=== PATIENT | male | born 1970 | race Caucasian/White ===

== ENCOUNTER 2020-05-22 13:47 | Emergency (ER) | payer BC, SELFPAY ==
[2020-05-22] VITALS (27 sets, daily range): BP systolic 122–160; BP diastolic 55–86; PULSE 73–98; RESP 9–32; TEMP 37.3; O2SAT 95–100
--- NOTE | 2020-05-22 13:45 | RT.EKG_ITS ---
APPROVED REPORT Exam: Resting ECG Patient Location: E HR:84 bpm ECG Measurements Heart Rate 84 AXIS MA 176 P 57 QRSd 102 QRS -30 QT 371 T 32 QTc 440 Conclusion Sinus rhythm...normal P axis, V-rate 60- 99 Left axis deviation...QRS axis (-30,-90) No acute ST elevation or depression.
--- NOTE | 2020-05-22 14:00 | ED.GENADUL_ITS ---
Discharge Plan Disposition Patient Disposition: HOME Condition: Improving Discharge Details Chief Complaint: Seizure Clinical Impression: Seizure disorder, Burn of first degree of left forearm, initial encounter, Burn of second degree of left forearm, initial encounter Primary Care Provider: Karen Castillo ED Provider: Sachi Modi Home Meds and New Rx's Prescriptions: Continued felbamate 600 mg Tablet 1,200 mg PO TID RF: 0 nortriptyline 75 mg Capsule 300 mg PO DAILY RF: 0 doxycycline hyclate 100 mg Tablet 100 mg PO BID RF: 0 Discharge Instructions Instructions: Superficial Burn (ED), Second Degree Burn (ED), Recurrent Seizures in Adults (ED) Additional Instructions: Drink plenty of fluids and get plenty of rest. Take Tylenol as needed and directed for headache. Continue your regular seizure medications as directed. Wash your left forearm burn with soap and water and apply topical antibiotic ointment and nonadherent dressing once daily for the next 5-7 days. Follow-up with your scheduled appointment with your neurologist at [facility] in June. Return immediately to the emergency department if you develop any worsening or new concerning symptoms. Discharge Data Discharge Date/Time-TO BE ENTERED AT DEPARTURE: 05/22/20 16:15 Discharge Physician: Sachi Modi Medical Decision Making 50-year-old male with a history of seizure disorder presents after an episode of altered mental status and altered speech followed by a 4-minute tonic-clonic seizure with LOC now presents for evaluation. Patient events to mild headache. He also has a first degree burn to his left fo rearm when he hit the tar from the roof. There is also a small second-degree burn within this area. There is no bony deformity. He has no focal deficits. Suspect most likely seizure related to sleep deprivation. Will place an IV, bolus IV fluids, screening labs, CT head and cervical spine and chest x-ray to rule out any acute process. We will also give a dose of Tylenol IV and reassess. 1500 --patient refusing CT imaging and chest x-ray. He states his symptoms feel consistent with his usual seizures. He states he had an MRI brain at [facility] 3 months ago which was negative for acute findings. He is declining all imaging. Risks of and disability due to missing a possible serious pathology such as skull fracture, brain bleed, mass or infection discussed and he understands. He demonstrates capacity to make decisions. His labs are reviewed and unremarkable. He has been texting on his phone and appears in no acute distress. 1515 --discussed with [facility] neurology -no other acute recommendations. Recommends to keep his seizure medications at the same dosage at this time. Patient has follow-up appoint with Dr. Tariq in June. His left forearm burn was covered with bacitracin and nonadherent dressing. Patient is requesting to go home. He feels much better and denies any acute complaints. He was given nonadherent dressings to go. A tetanus is given prior to discharge. Usual and customary return precautions given prior to discharge. Medical Records Medical records reviewed: Yes I reviewed the patient's medical records. Lab Data Lab results reviewed: Yes I reviewed the patient's lab results. Labs: Laboratory Tests Range/Units 05/22/20 05/22/20 13:49 13:49 WBC (4.4-10.8) 10^3/uL 7.29 RBC (4.36-5.78) 10^6/uL 4.99 Hgb (13.5-17.5) g/dL 14.5 Hct (40.0-50.0) % 44.1 MCV (80-95) fL 88.4 MCH (27.0-33.0) pg 29.1 MCHC (32.0-36.0) % 32.9 RDW (11.8-14.1) % 13.2 Plt Count (130-400) 10^3/uL 288 MPV (8.0-11.0) fL 8.6 Immature Gran % 0.8 Neutrophils % 81.0 Lymphocytes % 12.9 Monocytes % 4.5 Eosinophils % 0.4 Basophils % 0.4 Absolute Neutrophils (1.2-6.7) 10^3/uL 5.90 Absolute Lymphocytes (1.2-3.4) 10^3/uL 0.94 L Absolute Monocytes (0.1-0.8) 10^3/uL 0.33 Absolute Eosinophils (0.0-0.7) 10^3/uL 0.03 Absolute Basophils (0.0-0.2) 10^3/uL 0.03 Sodium (136-145) mmol/L 140 Potassium (3.5-5.1) mmol/L 4.2 Chloride (98-107) mmol/L 105 Carbon Dioxide (21.0-32.0) mmol/L 24.0 Anion Gap (3-11) mmol/L 11.0 BUN (7-18) mg/dL 11 Creatinine (0.70-1.30) mg/dL 0.81 Estimated GFR/1.73 m2 (mL/min/1.73m2) >= 60.00 Glucose (74-106) mg/dL 105 Calcium (8.5-10.1) mg/dL 8.6 Magnesium (1.8-2.4) mg/dL 1.7 L Total Bilirubin (0.2-1.0) mg/dL 0.3 AST (15-37) U/L 32 ALT (16-63) U/L 31 Alkaline Phosphatase (46-116) U/L 61 Troponin I (<0.06) ng/mL < 0.05 Total Protein (6.4-8.2) g/dL 7.6 Albumin (3.4-5.0) g/dL 4.1 ECG Data Attestation: I personally reviewed and interpreted this ECG (s) as follows: Interpretation: rate of 84, sinus, no acute ST elevation or depression. MS 176. QRS 102. QTc 440. HPI General Mode of arrival: ambulatory . Date/Time Provider Initiated Documentation: 05/22/20 13:51 . Limitations to Documentation: no limitations . Information obtained by: patient . HPI Narrative: Patient is a 50-year-old male with a history of seizure disorder presents for 2 episodes of altered mental status and seizure that occurred this morning prior to arrival. 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 EMS was called at that time and upon their arrival, patient admitted to feeling better and thought he was dehydrated and declined transport to the ER. Case was discussed with assembler tractor at that time and as patient was hemodynamically stable and oriented x3, it was found that he had capacity to make decisions. A short while later, patient felt dizzy and was noted by his coworkers to have a tonic-clonic seizure that lasted approximately 4 minutes. During that time he fell to the ground on the roof and hit his left forearm and elbow on the hot tar. He denies any bony injury but does admit to a burn to his left forearm. He is unsure of his tetanus status. He denies hitting his head but does admit to a diffuse headache which is 4/10. He denies any neck pain but states it feels somewhat stiff. He denies chest pain, back pain, shortness of breath, abdominal pain, recent illness, recent travel, fever, vomiting or diarrhea. Patient states he has been taking his seizure medication as directed. Patient states he is followed by [facility] neurology and last had an MRI a few months ago which was negative. He states he has seizures occurring usually in his sleep consistent with absence seizures which are noted by his while they are sleeping in which he gets up and walks around and says odd things. He states occasionally he has had tonic-clonic seizures that occur during the day but this is more rare. He states he first was diagnosed with seizure 6 years ago. He states he did not get much sleep last night and feels that this is the cause of his seizures as this usually happens when he is sleep deprived. Related Data Home Medications Medication Instructions Recorded Confirmed doxycycline hyclate 100 mg PO BID 05/22/20 05/22/20 felbamate 1,200 mg PO TID 05/22/20 05/22/20 nortriptyline 300 mg PO DAILY 05/22/20 05/22/20 Allergies Allergy/AdvReac Type Severity Reaction Status Date / Time amoxicillin AdvReac Skin Rash Unverified 05/22/20 13:55 lamotrigine [From Lamictal] AdvReac Skin Rash Unverified 05/22/20 13:55 General Stated Complaint: Seizure SAMANTHA: 3 Review of Systems All systems reviewed & are unremarkable except as noted in HPI and below Constitutional Constitutional: Reports as per HPI, Denies chills, Denies fever(s) and Reports headache(s) Eyes Eyes: Denies blurry vision ENT Ears, Nose, Mouth, and Throat: Denies dizziness, Reports headache(s), Denies sore throat and Denies throat swelling Cardiovascular Cardiovascular: Denies chest pain and Denies dyspnea Respiratory Respiratory: Denies cough and Denies dyspnea Gastrointestinal Gastrointestinal: Denies abdominal pain, Denies diarrhea and Denies vomiting Genitourinary Genitourinary: Denies hematuria and Denies dysuria Musculoskeletal Musculoskeletal: Denies back pain and Denies numbness Integumentary/Breasts Skin/Breast: Denies lesions and Denies rash Neurologic Neurologic: Denies dizziness, Reports headache(s), Denies localized weakness, Denies numbness and Reports convulsions Allergic/Immunologic Allergic/Immunologic: Denies throat swelling [facility] Medical History (Updated 05/22/20 @ 15:56 by Sachi Modi DO) Anxiety (Chronic) Seizure disorder (Chronic) Surgical History (Updated 05/22/20 @ 15:53 by Sachi Modi DO) History of knee surgery (Acute) Social History Smoking/Tobacco Use Status: Never Alcohol Intake: never Drug use: Never Substance use type: does not use Do you feel safe at home: Yes Do you feel safe in your relationship?: Yes Exam Const General: cooperative and healthy appearing Orientation: alert and awake HENMT Head: normal to inspection Ears: hearing grossly normal bilaterally, external ears normal and TM's normal bilaterally General nose exam: external nose normal Face and sinus: normal facial exam Mouth: oral mucosae normal Teeth and gingiva: dentition normal Throat: posterior oropharynx normal Eyes General: appearance normal, both eyes and all related structures Eyelids: eyelids normal Pupils: PERRL EOM: EOM intact bilaterally Neck Neck: normal visual inspection Lymphatic: no lymphadenopathy noted Chest Chest: normal inspection of the chest Resp Effort & Inspection: normal respiratory effort and able to speak in complete sentences Auscultation: clear to auscultation bilaterally Cardio Rate: regular rate Rhythm: regular rhythm GI Inspection: normal to inspection Palpation: soft, not firm, no guarding, no hepatosplenomegaly, no masses and nontender Auscultation: normal bowel sounds Back/Spine/Pelvis Back: no CVA tenderness Skin General skin exam: no rashes or lesions noted Neuro General: patient alert and patient awake Cognition: normal cognition Speech: speech normal Gait: normal gait Motor: muscle tone normal throughout Sensory Exam: no sensory deficits noted Extrem Elbow/forearm/wrist images: 1. 12 x 6 cm area of erythema and edema consistent with first-degree burn. There is a 1 x 1 cm ruptured blister noted at superior proximal end of first- degree burn consistent with second-degree burn. Psych Appearance: grossly normal Mental Status: mental status grossly normal Speech and Movement: speech and movement normal Affect: normal affect Thought Process: normal Course Vital Signs Vital signs: Vital Signs Temperature 99.1 F 05/22/20 13:36 Pulse 88 05/22/20 13:36 Respiratory Rate 16 05/22/20 13:36 Blood Pressure 160/75 H 05/22/20 13:36 Pulse Oximetry 96 05/22/20 13:36 Temperature 99.1 F 05/22/20 13:36 Temperature Source Skin 05/22/20 13:36 Pulse 88 05/22/20 13:36 Respiratory Rate 16 05/22/20 13:36 Respiratory Effort Non-Labored 05/22/20 13:57 Blood Pressure 160/75 H 05/22/20 13:36 Pulse Oximetry 96 05/22/20 13:36 Oxygen Delivery Method Room Air 05/22/20 13:36 Oxygen Flow Rate 0 05/22/20 13:36 Pain Level 2 05/22/20 13:36 Comment 05/22/20 13:36
[2020-05-22 14:50] LABS: Abs Immature Grans 0.06 10^3/uL (0.0-0.06); Absolute Basophil Count 0.03 10^3/uL (0.0-0.2); Absolute Eosinophil Count 0.03 10^3/uL (0.0-0.7); Absolute Lymphocyte Count 0.94 10^3/uL (1.2-3.4); Absolute Monocyte Count 0.33 10^3/uL (0.1-0.8); Basophils % 0.4; Eosinophils % 0.4; HCT 44.1 % (40.0-50.0); HGB 14.5 g/dL (13.5-17.5); Immature Grans % 0.8; Lymphocytes % 12.9; MCH 29.1 pg (27.0-33.0); MCHC 32.9 % (32.0-36.0); MCV 88.4 fL (80-95); MPV 8.6 fL (8.0-11.0); Monocytes % 4.5; Nucleated RBC 0 %; Platelet Count 288 10^3/uL (130-400); RBC 4.99 10^6/uL (4.36-5.78); RDW 13.2 % (11.8-14.1); WBC 7.29 10^3/uL (4.4-10.8)
[2020-05-22] MEDS: ACETAMINOPHEN 1,000 MG/100 ML BTL 400 MG IVPB (15:02)
[2020-05-22] MEDS: Normal Saline 1,000 ML 1000 ML IV (15:02)
[2020-05-22] MEDS: Normal Saline Flush 10 ML SYR IVP (15:03)
[2020-05-22 15:08] LABS: ALT 31 U/L (16-63); AST 32 U/L (15-37); Albumin 4.1 g/dL (3.4-5.0); Alkaline Phosphatase 61 U/L (46-116); BUN 11 mg/dL (7-18); Bilirubin, Total 0.3 mg/dL (0.2-1.0); CREATININE 0.81 mg/dL (0.70-1.30); Calcium 8.6 mg/dL (8.5-10.1); Chloride 105 mmol/L (98-107); Glucose 105 mg/dL (74-106); Magnesium 1.7 mg/dL (1.8-2.4); Potassium 4.2 mmol/L (3.5-5.1); Sodium 140 mmol/L (136-145); Total Protein 7.6 g/dL (6.4-8.2); Troponin I < 0.05 ng/mL (<0.06)
== END 2020-05-22 16:15 | disposition home or self-care (01) ==
PROVIDERS: Emergency Provider Physician Assistant; PCP Internal Medicine
DX: G40.909 Epilepsy, unspecified, not intractable, without status epilepticus (principal); T22.212A Burn of second degree of left forearm, initial encounter; X19.XXXA Contact with other heat and hot substances, initial encounter; R51 Headache; Z72.820 Sleep deprivation
CPT/HCPCS: 16020; 36415; 80053; 90471; 93005; 96361; 96365; 99285; 83735; 84484; 85025; 93010; J0131

== ENCOUNTER 2025-03-02 22:25 | Emergency (ER) | payer BC, SELFPAY ==
[2025-03-02] VITALS (15 sets, daily range): BP systolic 132–160; BP diastolic 72–93; PULSE 57–63; RESP 20; TEMP 36.7; O2SAT 96–98
--- NOTE | 2025-03-02 22:30 | RT.EKG_ITS ---
APPROVED REPORT Exam: Resting ECG Reason for Exam: Vision changes. Patient Location: E HR:61 bpm ECG Measurements Heart Rate 61 AXIS PA 223 P 44 QRSd 109 QRS 48 QT 443 T 39 QTc 446 Conclusion Sinus rhythm...normal P axis, V-rate 60- 99 Prolonged PA interval...PA >210, V-rate 50- 90
[2025-03-02 23:14] LABS: Abs Immature Grans 0.02 10^3/uL (0.0-0.06); Absolute Basophil Count 0.03 10^3/uL (0.0-0.2); Absolute Monocyte Count 0.73 10^3/uL (0.1-0.8); Absolute Neutrophil Count 5.31 10^3/uL (1.2-6.7); Basophils % 0.3 %; Eosinophils % 1.2 %; HCT 43.2 % (40.0-50.0); HGB 14.6 g/dL (13.5-17.5); Immature Grans % 0.2 %; Lymphocytes % 28.8 %; MCH 28.9 pg (27.0-33.0); MCHC 33.8 % (32.0-36.0); MCV 85 fL (80-95); MPV 8.5 fL (8.0-11.0); Monocytes % 8.4 %; Neutrophils % 61.1 %; Platelet Count 271 10^3/uL (130-400); RBC 5.06 10^6/uL (4.36-5.78); RDW 13.2 % (11.8-14.1); RDW-SD 40.7 fL; WBC 8.69 10^3/uL (4.4-10.8)
[2025-03-02] MEDS: Tetracaine 0.5% 4 ML BTL (23:16)
[2025-03-02] MEDS: Fluorescein STRIPS 100/BOX 1 MG OP (23:16)
[2025-03-02] MEDS: Normal Saline 500 ML IV (23:16)
[2025-03-02 23:28] LABS: PTT Activated 26.6 sec (20.6-30.2); Prothrombin Time 10.3 sec (9.1-11.1)
[2025-03-02 23:41] LABS: ALT 25 U/L (16-63); AST 22 U/L (15-37); Albumin 3.9 g/dL (3.4-5.0); Alkaline Phosphatase 72 U/L (46-116); Anion Gap 6.5 mmol/L (3-11); BUN 20 mg/dL (7-18); Bilirubin, Total 0.3 mg/dL (0.2-1.0); CO2 29.5 mmol/L (21.0-32.0); Calcium 9.3 mg/dL (8.5-10.1); Chloride 105 mmol/L (98-107); Estimated GFR 89.44 (mL/min/1.73m2); Glucose 107 mg/dL (74-106); Potassium 3.9 mmol/L (3.5-5.1); Sodium 141 mmol/L (136-145); TSH (W/Ref FT4) 3.61 uIU/mL (0.36-3.74); Total Protein 7.4 g/dL (6.4-8.2)
[2025-03-03] VITALS (11 sets, daily range): BP systolic 131–132; BP diastolic 65–66; PULSE 56–65; RESP 15; O2SAT 95–98
--- NOTE | 2025-03-03 00:30 | ED.GENADUL_ITS ---
Discharge Plan Disposition Patient Disposition: Home Condition: Good Discharge Details Clinical Impression: History of double vision Primary Care Provider: Karen Castillo ED Provider: Justin Bernstein Home Meds and New Rx's Prescriptions: Continued lacosamide 100 mg tablet 200 mg PO BID Patient Comments: TAKE 2 TABLETS BY MOUTH TWICE A DAY Eliquis 5 mg tablet 5 mg PO BID Patient Comments: TAKE 1 TABLET BY MOUTH TWICE A DAY clonazepam 1 mg tablet 1 mg PO HS Patient Comments: TAKE 1 TO 2 TABLETS BY MOUTH NIGHTLY oxcarbazepine 300 mg tablet 750 mg PO BID Patient Comments: TAKE 2 TABLETS BY MOUTH TWICE A DAY Discharge Instructions Additional Instructions: At this time your workup has returned reassuring. Your electrolytes, renal function, and thyroid function are all very normal. CT imaging of your brain neck and vessels in your brain have returned without any evidence of significant stroke, bleed, aneurysm or other abnormality per our radiology colleagues. It is unclear as to what initially caused your symptoms that have since resolved, however there does not appear to be any evidence of a life-threatening etiology at this time. Please follow-up closely with your neurologist for reassessment. If you notice any worsening of your symptoms, or any new symptoms such as vomiting, diarrhea, fever, chills, shortness of breath, chest pain, numbness, weakness, or fainting , please return immediately to the emergency department for reevaluation. Please follow up with your primary care provider as soon as possible for reassessment and reevaluation. As always, it was a pleasure participating in your medical care today. Referrals: Karen Castillo [Primary Care Provider] - [facility] General Date/Time Provider Initiated Documentation: 03/02/25 22:26 . HPI Narrative: This is a 55-year-old male with a past medical history complicated by seizures, currently on oxcarbazepine, lacosamide and clonazepam, DVT/blood clot currently on Eliquis, a few traumas in the past, but no other significant past medical history who presents today for diplopia. Patient states that things have been going well and then this evening at 7 PM he experienced double vision. He had never had this before as an aura or symptom in general. Symptoms lasted for about 3 hours. When he would cover 1 eye or the other it would resolve the double vision but he still felt that his vision was slightly blurry. He denied any particular atypical food. He had no alcohol this evening. He felt somewhat unsteady because of the vision change. He contacted neurology, they recommended that he come in for further assessment. By the time the patient arrived his symptoms had completely resolved and he states that he feels back to normal. He denies any headache, numbness or tingling, or weakness. He denies any trauma recently. He does state that he recently had foreign body sensation in his left eye but this has notably improved. It occurred a day or 2 ago while grinding a nail. He did have a recent increase in his oxcarbamazepine dose and is currently at 750 twice daily, but denies any other medication changes otherwise. No other complaints at this time. No other modifying factors. Related Data Home Medications ?Medication ?Instructions ?Recorded ?Confirmed apixaban 5 mg tablet (Eliquis) 5 mg PO BID 03/02/25 03/02/25 clonazepam 1 mg tablet 1 mg PO HS 03/02/25 03/02/25 lacosamide 100 mg tablet 200 mg PO BID 03/02/25 03/02/25 oxcarbazepine 300 mg tablet 750 mg PO BID 03/02/25 03/02/25 Allergies Allergy/AdvReac Type Severity Reaction Status Date / Time amoxicillin AdvReac Skin Rash Verified 03/02/25 22:38 lamotrigine (From Lamictal) AdvReac Skin Rash Verified 03/02/25 22:38 General Stated Complaint: CVA/TIA SAMANTHA: 2 Exam Narrative Exam Narrative: 1.Const: Well-nourished, Well-developed, appearing stated age 2.Eyes: PERRL, no conjunctival injection, and symmetrical lids. Left eye: EOMI, PERRL, Peripheral vision intact. No nystagmus. Fundoscopic exam shows normal optic discs and normal vasculature. No clinical signs of septal/orbital cellulitis, no redness around the eye, no proptosis. No hyphema, no signs of trauma around the eye, no periorbital emphysema. No sluggishness of the pupil. No ophthalmoplegia. No afferent pupillary defect. Fluorescein exam is negative for corneal abrasion, negative [place] sign. Visual acuity as documented in chart. 3.ENT: Atraumatic external nose and ears. Moist MM. Neck: Symmetric, trachea midline, No thyromegaly. 4.CVS: +S1/S2, Peripheral pulses 2+ and equal in all extremities. Brisk capillary refill in all extremities. 5.RESP: Unlabored respiratory effort. Clear to auscultation bilaterally. No wheezes rales or rhonchi 6.GI: Soft, Nontender/Nondistended, No hepatosplenomegaly. No guarding or rebound. 7.MSK: Normocephalic/Atraumatic, Extremities w/o deformity or ttp No cyanosis or clubbing, Normal movement of all extremities 8.Skin: Warm, Dry. No rashes or lesions. 9.Neuro: technical operator II-XII grossly intact. Sensation grossly intact, no focal neurologic deficits. All 6 cardinal planes of vision are fully intact. No evidence of rotatory or vertical nystagmus. The patient demonstrated a normal paswvx-[id number], good dexterity. There was no evidence of dysdiadochokinesia. Patient was able to ambulate without difficulty. There was no wide-based gait. Romberg testing was normal. Gedp-bk-dhkh testing was normal. Sensation was intact bilaterally as well as muscle strength bilaterally for all extremities. Patient was able to verbalize butter cup with no slurring, or miss pronunciation. 10.Psych: (AAO) x3. Appropriate mood and affect Course Vital Signs Vital signs: Vital Signs Temperature 36.7 C 03/02/25 22:32 Pulse 61 03/02/25 22:32 Respiratory Rate 20 03/02/25 22:32 Blood Pressure 154/93 H 03/02/25 22:32 Pulse Oximetry 98 03/02/25 22:32 Temperature 36.7 C 03/02/25 22:32 Temperature Source Oral 03/02/25 22:32 Pulse 60 03/02/25 23:10 Respiratory Rate 20 03/02/25 22:32 Blood Pressure 154/78 H 03/02/25 23:00 Blood Pressure Mean 103 03/02/25 23:00 Pulse Oximetry 96 03/02/25 23:10 Oxygen Delivery Method Room Air 03/02/25 22:32 Oxygen Flow Rate 0 03/02/25 22:32 Pain Level 0 03/02/25 22:32 Lab/Test Results Lab/Test Results: Laboratory Tests Range/Units 03/02/25 22:55 WBC (4.4-10.8) 10^3/uL 8.69 RBC (4.36-5.78) 10^6/uL 5.06 Hgb (13.5-17.5) g/dL 14.6 Hct (40.0-50.0) % 43.2 MCV (80-95) fL 85 MCH (27.0-33.0) pg 28.9 MCHC (32.0-36.0) % 33.8 RDW (11.8-14.1) % 13.2 Plt Count (130-400) 10^3/uL 271 MPV (8.0-11.0) fL 8.5 Immature Gran % % 0.2 Neutrophils % % 61.1 Lymphocytes % % 28.8 Monocytes % % 8.4 Eosinophils % % 1.2 Basophils % % 0.3 Nucleated RBC % (0.0-0.3) % 0.0 Absolute Neutrophils (1.2-6.7) 10^3/uL 5.31 Absolute Lymphocytes (1.2-3.4) 10^3/uL 2.50 Absolute Monocytes (0.1-0.8) 10^3/uL 0.73 Absolute Eosinophils (0.0-0.7) 10^3/uL 0.10 Absolute Basophils (0.0-0.2) 10^3/uL 0.03 PT (9.1-11.1) sec 10.3 INR (0.9-1.1) 1.0 APTT (20.6-30.2) sec 26.6 Sodium (136-145) mmol/L 141 Potassium (3.5-5.1) mmol/L 3.9 Chloride (98-107) mmol/L 105 Carbon Dioxide (21.0-32.0) mmol/L 29.5 Anion Gap (3-11) mmol/L 6.5 BUN (7-18) mg/dL 20 H Creatinine (0.70-1.30) mg/dL 1.0 Est GFR (CKD-EPI 2020) (mL/min/1.73m2) 89.44 Glucose (74-106) mg/dL 107 H Calcium (8.5-10.1) mg/dL 9.3 Magnesium (1.8-2.4) mg/dL 2.0 Total Bilirubin (0.2-1.0) mg/dL 0.3 AST (15-37) U/L 22 ALT (16-63) U/L 25 Alkaline Phosphatase (46-116) U/L 72 Total Protein (6.4-8.2) g/dL 7.4 Albumin (3.4-5.0) g/dL 3.9 TSH (0.36-3.74) uIU/mL 3.61 Medical Decision Making This is a 55-year-old male with a past medical history complicated by seizures, currently on oxcarbazepine, lacosamide and clonazepam, DVT/blood clot currently on Eliquis, a few traumas in the past, but no other significant past medical history who presents today for diplopia. Patient states that things have been going well and then this evening at 7 PM he experienced double vision. He had never had this before as an aura or symptom in general. Symptoms lasted for about 3 hours. When he would cover 1 eye or the other it would resolve the double vision but he still felt that his vision was slightly blurry. He denied any particular atypical food. He had no alcohol this evening. He felt somewhat unsteady because of the vision change. He contacted neurology, they recommended that he come in for further assessment. By the time the patient arrived his symptoms had completely resolved and he states that he feels back to normal. He denies any headache, numbness or tingling, or weakness. He denies any trauma recently. He does state that he recently had foreign body sensation in his left eye but this has notably improved. It occurred a day or 2 ago while grinding a nail. He did have a recent increase in his oxcarbamazepine dose and is currently at 750 twice daily, but denies any other medication changes otherwise. No other complaints at this time. No other modifying factors. Exam demonstrates a well-appearing male, no visual changes, no diplopia, no evidence of foreign body in the eye. No other abnormality. Differential includes atypical aura, focal seizure, stroke is less likely but on the differential. Will get CT imaging, gently rehydrate, evaluate for concerning abnormality, monitor closely and reassess. 1:24 AM Laboratory workup has returned normal, no evidence of electrolyte abnormality or other significant pathology. CTA/CT imaging shows no pathology. Patient continues to feel well. No evidence to suggest active stroke, current seizure, or other abnormality. Patient will be discharged home. Recommend close follow- up with neurology. Discussed red flags for which to return. I have extensively reviewed the treatment plan and discharge instructions with the patient. I have addressed all patient concerns at this time. The patient was made aware of what symptoms to monitor for that would warrant a return to the emergency department. Discussed the plan with the patient, they demonstrate verbal understanding and agreement with our assessment and plan at this time. The documentation in this chart was dictated using [employer] dictation software. Please excuse any dictation errors. FINDINGS: ANTERIOR CIRCULATION: Right internal carotid artery: Intracranial segment is patent with no significant stenosis or occlusion. No aneurysm. Right middle cerebral artery: No occlusion or significant stenosis. No aneurysm. Right anterior cerebral artery: No occlusion or significant stenosis. No aneurysm. Left internal carotid artery: Intracranial segment is patent with no significant stenosis. No aneurysm. Left middle cerebral artery: No occlusion or significant stenosis. No aneurysm. Left anterior cerebral artery: No occlusion or significant stenosis. No ane urysm. POSTERIOR CIRCULATION: Right vertebral artery: No occlusion or significant stenosis. No aneurysm. Left vertebral artery: No occlusion or significant stenosis. No aneurysm. Basilar artery: No occlusion or significant stenosis. No aneurysm. Right posterior cerebral artery: No occlusion or significant stenosis. No aneurysm. Left posterior cerebral artery: No occlusion or significant stenosis. No aneurysm. HEAD: Brain: No acute intracranial hemorrhage or mass lesions. No midline shift. Normal mohamud-white differentiation. Cerebral ventricles: Normal. No ventriculomegaly. Bones: Unremarkable. No acute fracture. Paranasal sinuses: Visualized sinuses are normal. No fluid levels. Mastoid air cells: Visualized mastoids are normal. No mastoid effusion. Soft tissues: Unremarkable. IMPRESSION: 1. No acute stenosis, occlusion, or aneurysm. 2. No acute intracranial findings. FINDINGS: Right common carotid artery: No stenosis. No dissection or occlusion. Right internal carotid artery: No stenosis of the extracranial segment. No dissection or occlusion. Right external carotid artery: No occlusion or stenosis of the origin. Left common carotid artery: No stenosis. No dissection or occlusion. Left internal carotid artery: No stenosis of the extracranial segment. No dissection or occlusion. Left external carotid artery: No occlusion or stenosis of the origin. Right vertebral artery: No stenosis. No dissection or occlusion. Left vertebral artery: No stenosis. No dissection or occlusion. Soft tissues: Normal. No significant soft tissue swelling. Bones/joints: There are mild degenerative changes including intervertebral disc space narrowing, endplate sclerosis, and osteophytosis. Lungs: The pulmonary apices are clear. IMPRESSION: No acute stenosis, occlusion, or aneurysm. REFERENCES: NASCET CRITERIA. The degree of stenosis in the cervical segment of the internal carotid artery is based on NASCET criteria. Normal is no stenosis. Mild is less than 50% stenosis. Moderate is 50- 69% stenosis. Severe is 70% to 99% stenosis. Total occlusion is no detectable patent lumen. Thank you for allowing us to participate in the care of your patient. Dictated and Authenticated by: Etta Shelby MD 03/03/2025 1:02 AM Eastern Time ([place] & [place]) Quality:SDOH Health Related Social Needs: No Data to Display PFSH All Active Problems (Updated 05/22/20 @ 15:53 by Sachi Modi DO) History of double vision (Acute) History of knee surgery (Acute) Medical History (Updated 03/03/25 @ 01:23 by Justin Bernstein DO) Anxiety Seizure disorder Social History Smoking/Tobacco Use Status: Never Smoking risk assessment performed?: Yes Alcohol Intake: never Drug use: Never Substance use type: does not use Do you feel safe at home: Yes Do you feel safe in your relationship?: Yes
[2025-03-03] MEDS: Omnipaque 350 MG/ML 100 ML BTL IJ (00:46)
[2025-03-03] MEDS: Normal Saline - Diluent 50 ML VIAL IJ (00:47)
--- NOTE | 2025-03-03 00:47 | DI.CT_ITS ---
Exam(s) CT BRAIN NECK CTA EXAM: CT BRAIN NECK CTA CLINICAL HISTORY: transient double vision, seizures, on thinners. TECHNIQUE: Imaging Protocol: Axial CT angiography was performed with multi-slice acquisition and mu lti-planar and/or 3D reconstructions. CONTRAST MATERIAL: Intravenous: Omnipaque 350 contrast volume:70 mL COMPARISON: No exams were available for comparison FINDINGS: CT Head W/O and W: Ventricles and Extra axial spaces: Normal in size and morphology for the patient's age. Hemorrhage: None. Cerebral parenchyma: Normal. Midline shift: None. Brainstem/Cerebellum: Normal. Calvarium: Normal. Visualized Paranasal sinuses/Mastoids: Clear. Soft Tissues: Unremarkable. Enhancement: Unremarkable. CTA Neck W: Common Carotid: Right: No dissection, occlusion or significant stenosis. Left: No dissection, occlusion or significant stenosis. External Carotid: Right: No occlusion or significant stenosis. Left: No occlusion or significant stenosis. Internal Carotid: Right: No dissection, occlusion or significant stenosis. Left: No dissection, occlusion or significant stenosis. Vertebral Artery: Right: No dissection, occlusion or significant stenosis. Left: No dissection, occlusion or significant stenosis. Lung Apices: Normal. Bones: Within normal limits for the patient's age. Age-appropriate degenerative changes are seen in t he spine. There is straightening of the normal cervical lordosis. This may be due to muscle spasm o r patient positioning. Soft Tissues: Normal. Thyroid gland: Unremarkable. CTA Brain W: Internal Carotid Arteries: No aneurysm, occlusion or significant stenosis is present. Anterior Cerebral Arteries: Right: No aneurysm, occlusion or significant stenosis. Left: No aneurysm, occlusion or significant stenosis. Middle Cerebral Arteries: Right: No aneurysm, occlusion or significant stenosis. Left: No aneurysm, occlusion or significant stenosis. Posterior Cerebral Arteries: The right posterior cerebral artery arises from the right posterior comm unicating artery which is a normal variant. Right: No aneurysm, occlusion or significant stenosis. Left: No aneurysm, occlusion or significant stenosis. Vertebral Arteries: Right: No aneurysm, occlusion or significant stenosis. Left: No aneurysm, occlusion or significant stenosis. Basilar Artery: No aneurysm, occlusion or significant stenosis. IMPRESSION: 1. No large vessel occlusion or significant stenosis on the CT angiography of the head. 2. No acute intracranial process. 3. No occlusion or significant stenosis on the CT angiography of the neck. RADIATION DOSE DELIVERED: 2,264mGy.cm Total DLP DATA REPOSITORY: All CT scans at this facility are submitted to the National Radiology Data Registry (NRDR) Dose Index Registry (DIR) with the [employer] (ACR). RADIATION OPTIMIZATION: All CT scans at this facility use at least one of these dose optimization te chniques: automated exposure control; mA and/or kV adjustment per patient size (includes targeted exa ms where dose is matched to clinical indication); or iterative reconstruction.
--- NOTE | 2025-03-03 01:03 | DI.VRAD_ITS ---
PROCEDURE INFORMATION: Exam: CTA Head Without And With Contrast, Arteriography Exam date and time: 03/03/2025 12:22 AM Age: 55 years old Clinical indication: Transient double vision, seizures, on thinners TECHNIQUE: Imaging protocol: Computed tomographic angiography of the head without and with contrast. Exam focused on the arteries. 3D rendering (Not supervised by radiologist): MIP and/or 3D reconstructed images were created by the technologist. Radiation optimization: All CT scans at this facility use at least one of these dose optimization techniques: automated exposure control; mA and/or kV adjustment per patient size (includes targeted exams where dose is matched to clinical indication); or iterative reconstruction. Contrast material: [id number]; Contrast volume: 70 ml; Contrast route: INTRAVENOUS (IV); COMPARISON: No relevant prior studies available. FINDINGS: ANTERIOR CIRCULATION: Right internal carotid artery: Intracranial segment is patent with no significant stenosis or occlusion. No aneurysm. Right middle cerebral artery: No occlusion or significant stenosis. No aneurysm. Right anterior cerebral artery: No occlusion or significant stenosis. No aneurysm. Left internal carotid artery: Intracranial segment is patent with no significant stenosis. No aneurysm. Left middle cerebral artery: No occlusion or significant stenosis. No aneurysm. Left anterior cerebral artery: No occlusion or significant stenosis. No aneurysm. POSTERIOR CIRCULATION: Right vertebral artery: No occlusion or significant stenosis. No aneurysm. Left vertebral artery: No occlusion or significant stenosis. No aneurysm. Basilar artery: No occlusion or significant stenosis. No aneurysm. Right posterior cerebral artery: No occlusion or significant stenosis. No aneurysm. Left posterior cerebral artery: No occlusion or significant stenosis. No aneurysm. HEAD: Brain: No acute intracranial hemorrhage or mass lesions. No midline shift. Normal mohamud-white differentiation. Cerebral ventricles: Normal. No ventriculomegaly. Bones: Unremarkable. No acute fracture. Paranasal sinuses: Visualized sinuses are normal. No fluid levels. Mastoid air cells: Visualized mastoids are normal. No mastoid effusion. Soft tissues: Unremarkable. IMPRESSION: 1. No acute stenosis, occlusion, or aneurysm. 2. No acute intracranial findings. PROCEDURE INFORMATION: Exam: CTA Neck Without And With Contrast Exam date and time: 03/03/2025 12:22 AM Age: 55 years old Clinical indication: Transient double vision, seizures, on thinners TECHNIQUE: Imaging protocol: Computed tomographic angiography of the neck without and with contrast. Exam focused on the cervical segments of the vasculature. 3D rendering (Not supervised by radiologist): MIP and/or 3D reconstructed images were created by the technologist. Radiation optimization: All CT scans at this facility use at least one of these dose optimization techniques: automated exposure control; mA and/or kV adjustment per patient size (includes targeted exams where dose is matched to clinical indication); or iterative reconstruction. Contrast material: [id number]; Contrast volume: 70 ml; Contrast route: INTRAVENOUS (IV); COMPARISON: No relevant prior studies available. FINDINGS: Right common carotid artery: No stenosis. No dissection or occlusion. Right internal carotid artery: No stenosis of the extracranial segment. No dissection or occlusion. Right external carotid artery: No occlusion or stenosis of the origin. Left common carotid artery: No stenosis. No dissection or occlusion. Left internal carotid artery: No stenosis of the extracranial segment. No dissection or occlusion. Left external carotid artery: No occlusion or stenosis of the origin. Right vertebral artery: No stenosis. No dissection or occlusion. Left vertebral artery: No stenosis. No dissection or occlusion. Soft tissues: Normal. No significant soft tissue swelling. Bones/joints: There are mild degenerative changes including intervertebral disc space narrowing, endplate sclerosis, and osteophytosis. Lungs: The pulmonary apices are clear. IMPRESSION: No acute stenosis, occlusion, or aneurysm. REFERENCES: NASCET CRITERIA. The degree of stenosis in the cervical segment of the internal carotid artery is based on NASCET criteria. Normal is no stenosis. Mild is less than 50% stenosis. Moderate is 50-69% stenosis. Severe is 70% to 99% stenosis. Total occlusion is no detectable patent lumen. Dictated and Authenticated by: Etta Shelby MD. Orderin Day Anderson MD
== END 2025-03-03 01:31 | disposition home or self-care (01) ==
PROVIDERS: Emergency Provider Student in an Organized Health Care Education/Training Program; PCP Internal Medicine
DX: H53.2 Diplopia (principal); G40.909 Epilepsy, unspecified, not intractable, without status epilepticus; Z86.718 Personal history of other venous thrombosis and embolism; Z79.02 Long term (current) use of antithrombotics/antiplatelets; Z79.899 Other long term (current) drug therapy
CPT/HCPCS: 36415; 70496; 70498; 80053; 93005; 96360; 99285; 83735; 84443; 85025; 85610; 85730; 93010; J3490

== ENCOUNTER 2025-08-07 16:02 | Emergency (ER) | payer BC, SELFPAY ==
[2025-08-07 16:06] VITALS: BP 160/85; PULSE 63; RESP 18; TEMP 35.7; O2SAT 98
[2025-08-07 16:10] VITALS: BP 160/85; PULSE 63; RESP 18; TEMP 35.7; O2SAT 98
--- NOTE | 2025-08-07 16:16 | W.ED.GENAD ---
Discharge Plan Disposition Patient Disposition: Home Condition: Good Discharge Details Clinical Impression: Kidney stone on right side, Anticoagulated Primary Care Provider: Karen Castillo ED Provider: Marine Hamm Home Meds and New Rx's Prescriptions: No Action lacosamide 100 mg tablet 200 mg PO BID Patient Comments: TAKE 2 TABLETS BY MOUTH TWICE A DAY Eliquis 5 mg tablet 5 mg PO BID Patient Comments: TAKE 1 TABLET BY MOUTH TWICE A DAY clonazepam 1 mg tablet 1 mg PO HS Patient Comments: TAKE 1 TO 2 TABLETS BY MOUTH NIGHTLY oxcarbazepine 300 mg tablet 750 mg PO BID Patient Comments: TAKE 2 TABLETS BY MOUTH TWICE A DAY Discharge Instructions Instructions: Kidney Stone, Adult ED Additional Instructions: Referral has been placed to [facility] urology for follow-up/management of your kidney stone. You have a 5 mm stone at the right renal pelvis. There is no sign of kidney dysfunction. Please continue to take your Flomax 0.4 mg as prescribed. This will help facilitate passage of the stone. Please strain your urine every time you urinate to help catch the pieces of the broken stone when it comes out. Stay well-hydrated, drinking plenty of fluid throughout the day to help maintain kidney function Continue to take your Eliquis as prescribed. Return to emergency care if you develop new lightheadedness, shortness of breath, severe abdominal pain, feel like you are unable to fully empty your bladder, Velp new fever/chills, are unable to keep down fluids, or if you are very worried and need to be rechecked again immediately Referrals: [facility] [Provider Group] [facility] General Date/Time Provider Initiated Documentation: 08/07/25 16:15. HPI Narrative: Danyel is a 55-year-old male who presents to the emergency department today for evaluation of hematuria. He is accompanied by his . Recently underwent 2-week intracranial EEG at [facility], switched from Eliquis to warfarin during the procedure, resumed Eliquis the day after he was discharged on 08/01/2025. Last night, noticed maroon-colored urine. He did not notice his urine color this morning, but this afternoon when he urinated at 1300 hrs. he noted it was even darker red. No clots or streaks in the urine. Denies hematuria, urgency, foul odor, recent genital or back trauma,/chills, dizziness, shortness of breath, nausea/vomiting, abdominal pain, back pain, blood in stool, nosebleeds, gum bleeding, testicular or penile changes. Medical history significant for anticoagulation with Eliquis for provoked DVT, epilepsy. Denies history of heart disease, lung disease, kidney dysfunction. Does have history of kidney trauma in the past, issue since then Related Data Home Medications ?Medication ?Instructions ?Recorded ?Confirmed apixaban 5 mg tablet (Eliquis) 5 mg PO BID 03/02/25 08/07/25 clonazepam 1 mg tablet 1 mg PO HS 03/02/25 08/07/25 lacosamide 100 mg tablet 200 mg PO BID 03/02/25 08/07/25 oxcarbazepine 300 mg tablet 750 mg PO BID 03/02/25 08/07/25 Allergies Allergy/AdvReac Type Severity Reaction Status Date / Time amoxicillin AdvReac Skin Rash Verified 08/07/25 16:10 lamotrigine (From Lamictal) AdvReac Skin Rash Verified 08/07/25 16:10 General Stated Complaint: Urinary SAMANTHA: 3 Exam Narrative Exam Narrative: General Appearance: Normal. Alert and oriented, no acute distress Vital signs: Within normal limits. Mild hypertension noted, BP 160/85. HEENT: No conjunctival pallor Respiratory: Work of breathing, lung sounds clear bilaterally. Cardiovascular: Regular heart sounds, no murmurs. No pedal edema noted. No obvious JVD. Gastrointestinal: Abdomen soft, non-tender, no guarding or rigidity. No CVA tenderness. Skin: Warm and dry, no rash. No obvious ecchymosis noted. Psychiatric: Normal. Course Vital Signs Vital signs: Vital Signs Temperature 35.7 C L 08/07/25 16:06 Pulse 63 08/07/25 16:06 Respiratory Rate 18 08/07/25 16:06 Blood Pressure 160/85 H 08/07/25 16:06 Pulse Oximetry 98 08/07/25 16:06 Temperature 35.7 C L 08/07/25 16:10 Pulse 63 08/07/25 16:10 Respiratory Rate 18 08/07/25 16:10 Blood Pressure 160/85 H 08/07/25 16:10 Pulse Oximetry 98 08/07/25 16:10 Medical Decision Making Initial Assessment: 55-year-old male on Eliquis for DVTs presents with hematuria. Reports dark maroon-colored urine since last night, no associated pain, urgency, foul odor, or history of catheterization. No history of trauma or manipulation. Differential Diagnosis includes but is not limited to: UTI/pyelonephritis, neoplasm, urethral trauma, glomerulonephritis/nephropathy, nephrolithiasis, coagulopathy/supratherapeutic anticoagulation, severe anemia I independently interpreted the following tests: CBC and coags unremarkable. CMP notable for mild electrolyte disturbances with potassium 3.4, sodium 132, and chloride 95. UA with greater than 50 red blood cells, not consistent with infection. CT urogram notable for 5 mm stone at the R UPJ with mild dilatation of the R renal pelvis. While in the emergency department, Danyel received 1 L normal saline and potassium bicarb replenishment. Reviewed findings with patient. He reports he is already taking Flomax for BPH at home. Referral provided for [facility] urology. Reviewed discharge instructions with patient, including importance of monitoring urine/straining urine, risk of blood clots while on Eliquis/bladder outlet obstruction, and red flags indicate need for return to emergency care. He voices agreement w plan of care. Patient consented to the use of [facility] Data Radiologic Study: Radiologist's impression: Accession No. : [id number] Creator : HERNANDEZ CANELA Dictator : HERNANDEZ CANELA Chisel Mortiser Operator : Population Health Manager : HERNANDEZ CANELA Approver2 : Report Date : 08/07/2025 17:59:51 Exam(s) CT ABDOMEN PELVIS WO/W EXAM: CT ABDOMEN PELVIS WO/W CLINICAL HISTORY: hematuria, urogram needed. TECHNIQUE: Imaging Protocol: Axial computed tomography images with coronal and sagittal reformatted images were created and reviewed. Images were performed from the lung bases through the ischial tuberosities before IV contrast and following IV contrast using a 70 second delay, followed by 7 minutes delayed images. CONTRAST MATERIAL: Intravenous: Omnipaque 350 Contrast volume:100 cc Oral: no COMPARISON: No exams were available for comparison FINDINGS: Lung Bases: Normal where visualized. Liver: Normal density. No measurable mass. Gallbladder and biliary tract: No biliary dilation. Pancreas: Normal density, no abnormal calcifications or inflammatory process. Spleen: Normal. Kidneys: Normal size and axis. There is a 5 x 3.5 centimeter stone in the right ureteropelvic junction. There is mild dilatation of the right renal pelvis. Delayed images show no evidence of obstruction secondary to the stone. There is no perinephric stranding. There is no delayed right nephrogram. There is mild enhancement of the urothelium involving the right renal pelvis and proximal ureter. There is a area of scarring at the posterior mid to lower pole of the right kidney. No suspicious masses seen. There is a circumaortic left renal vein. Adrenal glands: No masses seen. Lymph nodes: Within normal limits. Abdominal Aorta: Abdominal portion non-dilated. Soft tissues: Unremarkable. Bladder: No gross wall thickening. No evidence of a mass.No evidence of calculi. No visible hemorrhage or clot. Bowel: Stomach unremarkable. No obstruction or bowel wall thickening. Appendix normal. Diverticulosis of the lower descending and sigmoid colon without evidence of diverticulitis. Peritoneal cavity: No ascites, collection or mesenteric inflammatory response. Bones: Severe degenerative changes of the right hip. Moderate degenerative changes of the left hip. Moderate to severe degenerative changes are seen in the lower lumbar spine. Reproductive organs: Unremarkable for age. IMPRESSION: 5 millimeter stone at the right renal pelvis with mild dilatation of the renal pelvis and intrarenal collecting system. Mild urothelial enhancement. No additional calculi are identified. The bladder is unremarkable. Findings called to the ER provider. RADIATION DOSE DELIVERED: Total DLP DATA REPOSITORY: All CT scans at this facility are submitted to the National Radiology Data Registry (NRDR) Dose Index Registry (DIR) with the [employer] (A[employer]). RADIATION OPTIMIZATION: All CT scans at this facility use at least one of these dose optimization techniques: automated exposure control; mA and/or kV adjustment per patient size (includes targeted exams where dose is matched to clinical indication); or iterative reconstruction. PFSH All Active Problems (Updated 05/22/20 @ 15:53 by Sachi Modi DO) Anticoagulated (Acute) Kidney stone on right side (Acute) History of knee surgery (Acute) Medical History (Updated 08/07/25 @ 18:17 by Marine Urbano Anxiety Seizure disorder Social History Smoking/Tobacco Use Status: Never Smoking risk assessment performed?: Yes Alcohol Intake: never Drug use: Never Substance use type: does not use Do you feel safe at home: Yes Do you feel safe in your relationship?: Yes
[2025-08-07] MEDS: Normal Saline 1,000 ML 1000 ML IV (16:30)
--- NOTE | 2025-08-07 16:45 | DI.CT_ITS ---
Exam(s) CT ABDOMEN PELVIS WO/W EXAM: CT ABDOMEN PELVIS WO/W CLINICAL HISTORY: hematuria, urogram needed. TECHNIQUE: Imaging Protocol: Axial computed tomography images with coronal and sagittal reformatted images were created and reviewed. Images were performed from the lung bases through the ischial tuberosities before IV contrast and following IV contrast using a 70 second delay, followed by 7 minutes delayed images. CONTRAST MATERIAL: Intravenous: Omnipaque 350 Contrast volume:100 cc Oral: no COMPARISON: No exams were available for comparison FINDINGS: Lung Bases: Normal where visualized. Liver: Normal density. No measurable mass. Gallbladder and biliary tract: No biliary dilation. Pancreas: Normal density, no abnormal calcifications or inflammatory process. Spleen: Normal. Kidneys: Normal size and axis. There is a 5 x 3.5 centimeter stone in the right ureteropelvic junction. There is mild dilatation of the right renal pelvis. Delayed images show no evidence of obstruction secondary to the stone. There is no perinephric stranding. There is no delayed right nephrogram. There is mild enhancement of the urothelium involving the right renal pelvis and proximal ureter. There is a area of scarring at the posterior mid to lower pole of the right kidney. No suspicious masses seen. There is a circumaortic left renal vein. Adrenal glands: No masses seen. Lymph nodes: Within normal limits. Abdominal Aorta: Abdominal portion non-dilated. Soft tissues: Unremarkable. Bladder: No gross wall thickening. No evidence of a mass.No evidence of calculi. No visible hemorrhage or clot. Bowel: Stomach unremarkable. No obstruction or bowel wall thickening. Appendix normal. Diverticulosis of the lower descending and sigmoid colon without evidence of diverticulitis. Peritoneal cavity: No ascites, collection or mesenteric inflammatory response. Bones: Severe degenerative changes of the right hip. Moderate degenerative changes of the left hip. Moderate to severe degenerative changes are seen in the lower lumbar spine. Reproductive organs: Unremarkable for age. IMPRESSION: 5 millimeter stone at the right renal pelvis with mild dilatation of the renal pelvis and intrarenal collecting system. Mild urothelial enhancement. No additional calculi are identified. The bladder is unremarkable. Findings called to the ER provider. RADIATION DOSE DELIVERED: Total DLP DATA REPOSITORY: All CT scans at this facility are submitted to the National Radiology Data Registry (NRDR) Dose Index Registry (DIR) with the [employer] (ACR). RADIATION OPTIMIZATION: All CT scans at this facility use at least one of these dose optimization techniques: automated exposure control; mA and/or kV adjustment per patient size (includes targeted exams where dose is matched to clinical indication); or iterative reconstruction.
[2025-08-07 16:46] LABS: Abs Immature Grans 0.02 10^3/uL (0.0-0.06); HCT 42.6 % (40.0-50.0); HGB 14.8 g/dL (13.5-17.5); Immature Grans % 0.2 %; MCH 29.7 pg (27.0-33.0); MCHC 34.7 % (32.0-36.0); MCV 85 fL (80-95); MPV 8.0 fL (8.0-11.0); Platelet Count 330 10^3/uL (130-400); RBC 4.99 10^6/uL (4.36-5.78); RDW 12.3 % (11.8-14.1); RDW-SD 38.3 fL; WBC 8.67 10^3/uL (4.4-10.8)
[2025-08-07 17:01] LABS: Glucose Negative (Negative)
[2025-08-07 17:03] LABS: INR 1.1 (0.9-1.1); PTT Activated 27.6 sec (20.6-30.2); Prothrombin Time 11.0 sec (9.1-11.1)
[2025-08-07] MEDS: Normal Saline Flush 10 ML SYR IVP (17:03)
[2025-08-07] MEDS: Normal Saline - Diluent 50 ML VIAL IJ ×2 (17:03→17:04)
[2025-08-07] MEDS: Omnipaque 350 MG/ML 500 ML BTL-Imaging package IJ (17:04)
[2025-08-07 17:07] LABS: ALT 36 U/L (16-63); AST 26 U/L (15-37); Albumin 4.2 g/dL (3.4-5.0); Alkaline Phosphatase 77 U/L (46-116); Anion Gap 6.7 mmol/L (3-11); BUN 6 mg/dL (7-18); Bilirubin, Total 0.5 mg/dL (0.2-1.0); CO2 30.3 mmol/L (21.0-32.0); Calcium 9.0 mg/dL (8.5-10.1); Chloride 95 mmol/L (98-107); Estimated GFR 105.17 (mL/min/1.73m2); Glucose 93 mg/dL (74-106); Potassium 3.4 mmol/L (3.5-5.1); Sodium 132 mmol/L (136-145); Total Protein 8.0 g/dL (6.4-8.2)
[2025-08-07 17:09] LABS: C & S Indicated? Yes
[2025-08-07 17:10] LABS: RBC >50 HPF (0-2)
[2025-08-07] MEDS: Potassium Bicarbonate/Cit AC 25 MEQ TABLET.EFF PO (18:30)
[2025-08-07] MEDS: Tamsulosin 0.4 MG CAPCR PO (18:30)
== END 2025-08-07 18:49 | disposition home or self-care (01) ==
PROVIDERS: Emergency Provider Nurse Practitioner Family; PCP Internal Medicine
DX: N20.0 Calculus of kidney (principal); Z79.01 Long term (current) use of anticoagulants
CPT/HCPCS: 99283; 99285; 36415; 80053; 96360; 74178; 81003; 81015; 85025; 85610; 85730; 87086